=== PATIENT | female | born 1950 | race Caucasian/White ===

== ENCOUNTER 2023-06-11 20:03 | Emergency (ER) | payer MEDICARE, BC, SELFPAY ==
[2023-06-11 20:08] VITALS: BP 142/69; PULSE 70; RESP 16; TEMP 36.8; O2SAT 97; BMI 22.4
--- NOTE | 2023-06-11 22:01 | ED_ITS ---
HPI - General Adult General Chief complaint: Skin/Abscess/Foreign Body Stated complaint: infection on left calf Time Seen by Provider: 06/11/23 21:03 Source: patient Mode of arrival: Ambulatory History of Present Illness HPI narrative: 72-year-old woman with history of paroxysmal atrial fibrillation currently on apixaban, hyperlipidemia who was stung by a yellow jacket yesterday around 2 in the afternoon. The area on the posterior left calf is continued to be red and swollen with increasing induration centrally. She is concerned that it was beginning to become infected. She describes no fever cough or chills. She is never had similar problems with prior bites or stings. Related Data Previous Rx's Medication Instructions Recorded cephalexin 500 mg capsule 500 mg PO TID #15 caps 06/11/23 Allergies Allergy/AdvReac Type Severity Reaction Status Date / Time No Known Drug Allergies Allergy Verified 06/11/23 20:08 Review of Systems Review of Systems Narrative: Pertinent positive and negative findings as per HPI Patient History Medical History (Updated 06/11/23 @ 22:13 by Holli Aponte MD) Hyperlipidemia Paroxysmal atrial fibrillation Social History Smoking Status: Never smoker Smoking Status: Never smoker Substance Use Type: does not use Exam Initial Vital Signs Initial Vital Signs: Vital Signs Temperature 98.3 F 06/11/23 20:08 Pulse Rate 70 06/11/23 20:08 Respiratory Rate 16 06/11/23 20:08 Blood Pressure 142/69 H 06/11/23 20:08 Pulse Oximetry 97 06/11/23 20:08 Oxygen Delivery Method Room Air 06/11/23 20:08 General: Alert appropriate in no acute distress Respiratory: Able to speak in full sentences, no obvious respiratory distress Skin: No obvious rashes, warm and dry Neurologic: Grossly intact no obvious asymmetries or abnormalities Psych: appropriate insight and affect, cooperative Extremity: There is an 10 x 10 cm area of mild erythema with central induration with small bite/sting all centrally. There is no actual fluctuance. The area is warm to the touch. Course Vital Signs Vital signs: Vital Signs - 8 hr 06/11/23 20:08 Temperature 98.3 F Pulse Rate 70 Respiratory Rate 16 Blood Pressure 142/69 H Pulse Oximetry 97 Oxygen Delivery Method Room Air Medical Decision Making MDM Narrative Medical decision making narrative: CC: Yellow jacket sting posterior left calf concern for developing cellulitis Complicating co-morbidities: Paroxysmal atrial fibrillation, anticoagulated Data collected from: patient, Social determinants of health that may influence the patients condition: Visiting from out of town Differential considered: Local reaction to bite, allergic reaction, cellulitis, hematoma Exam documented above, pertinent findings include: Mild erythema with central induration likely simply a local reaction no evidence of deeper abscess, no lymphangitic streaking Discussion: Discussed likely self-limited problem. Recommended keeping her leg elevated this evening and if it is more red swollen or tender by the morning than beginning a course of Keflex. She is given a prescription and initial doses they will be heading back to their home on the [facility] side of the [facility] by tomorrow morning. She understands the need for re-evaluation if symptoms worsen. She is safe for discharge home Discharge Plan Departure Patient Disposition: Home Clinical Impression: Hymenoptera reaction Cellulitis Qualifiers: Site of cellulitis: extremity Site of cellulitis of extremity: lower extremity Laterality: left Qualified Code(s): L03.116 - Cellulitis of left lower limb Instructions: DI for Cellulitis -- Adult, DI for Insect Bites and Stings Activity Restrictions/Additional Instructions: Thank you for coming in today I suspect that your leg wound is simply an impressive reaction to the yellow jacket sting. I am a bit concerned about the surrounding redness at almost 36 hours after the event. I would recommend that you keep your leg elevated tonight and if it seems like it is increasingly red, sore or more tender than I would began the Keflex tomorrow morning. I have given you dose to take tomorrow morning if needed as well as a written prescription. If you find that you are getting worse or develop any new symptoms, please feel free to return to the emergency department for further evaluation. I hope that your able to enjoy your hike tomorrow Prescriptions: New cephalexin 500 mg capsule 500 mg PO TID Qty: 15 0RF Stand Alone Forms: Patient Portal/API
[2023-06-11] MEDS: cephALEXin 250 MG CAP PREPACK 1 BOTTLE MISC (22:15)
--- NOTE | 2023-06-11 22:15 | PC.NURSE ---
assess per Dr Aponte
== END 2023-06-11 22:20 | disposition home or self-care (01) ==
PROVIDERS: Emergency Provider Emergency Medicine
DX: L03.116 Cellulitis of left lower limb (principal); T63.481A Toxic effect of venom of other arthropod, accidental (unintentional), initial encounter
CPT/HCPCS: 99281; 99283